=== PATIENT | female | born 1955 | race Caucasian/White ===

== ENCOUNTER 2021-07-22 10:54 | Outpatient (CLI) | payer OTHER ==
[~2021-07-22 10:54] MED LIST: PERCOCET 5/3251 TAB PO
== END 2021-07-24 09:37 | disposition home or self-care (01) ==
LOC: MAMO-SONO 10:54
DX: N64.89 Other specified disorders of breast (principal); Z12.31 Encounter for screening mammogram for malignant neoplasm of breast; Z80.8 Family history of malignant neoplasm of other organs or systems

== ENCOUNTER 2021-07-28 13:00 | Outpatient (CLI) | payer OTHER | END 2021-07-28 13:10 | disposition home or self-care (01) | LOC: RAD 13:00 | PROVIDERS: ATTEND Internal Medicine Pulmonary Disease | DX: I10 Essential (primary) hypertension (principal); R06.02 Shortness of breath ==